=== PATIENT | female | born 1965 | race Caucasian/White ===

== ENCOUNTER → 2016-12-01 | Outpatient (CLI) | payer BC ==
--- NOTE | ~2016-12-01 | MR113 ---
[facility] A Service of [facility] & [facility] RADIOLOGY TEXT RESULTS PATIENT: SUDHA MELENDEZ LOCATION: [facility] : 67 UNIT #: [id number] AGE: [address]: Vasquez Henry II, MD SEX: F ORDER DR: [id number] [facility] [address] [place], [place] [address] [id number] O MR#: [id number] Acc #: [id number] NAME: SUDHA MELENDEZ : 1965 SEX: F STUDY DATE/TIME: 12/01/2016 14:43 UNIT: [facility] ROOM: STUDY DESCRIPTION: MR Lumbar Wo Contrast Attending Physician: Vasquez Henry II., M.D. Referring Physician: Vasquez Henry II., M.D. Ordering Physician: Vasquez Henry II., M.D. Primary Care Physician: Stuart Hartman M.D. MRI CENTER REPORT This report is preliminary unless electronic signature is present. EXAM Lumbar spine MRI without HISTORY Paresthesias. COMMENT MRI of lumbar spine performed without contrast using routine 1.5T imaging technique. Sagittal alignment is normal. Marrow signal intensity unremarkable allowing for minor marrow endplate degenerative change. Mild disc desiccation at L1-2 and L4-5. Conus medullaris terminates at L1 and is normal. At 1-2, there is mild bilateral facet hypertrophy. Mild concentric disc bulge superimposed right paramedian small protrusion. Mild flattening of the right anterior thecal sac but no significant central canal stenosis or foraminal impingement. At L2-3, mild facet degenerative change bilaterally with minor concentric disc bulge. There is no canal or foraminal impingement. At L3-4, there is mild bilateral facet degenerative change left greater than right. Mild ligamentum flavum thickening, mild concentric disc bulge. Mild effacement of the thecal sac. No central canal stenosis or significant foraminal impingement. L4-5, more moderate facet degenerative change bilaterally with moderate ligamentum flavum thickening. Mild broad-based posterior disc protrusion superimposed upon a minor bulge. Mild canal stenosis and mass effect on the left lateral recess in particular, minor mass effect on the right lateral recess. Please correlate for L5 radicular symptoms. Disc material also extends into the foramina and there is mild bilateral inferior foraminal narrowing. [facility]. [facility] A Service of [facility] & [facility] RADIOLOGY TEXT RESULTS PATIENT: SUDHA MELENDEZ LOCATION: [facility] : 67 UNIT #: [id number] AGE: [address]: Vasquez Henry II, MD SEX: F ORDER DR: L5-S1, mild facet degenerative change bilaterally. Mild broad-based posterior disc bulge. No canal stenosis. Tiny posterior annular fissure. No significant foraminal impingement. IMPRESSION 1. There is relatively mild lumbar degenerative change detailed above. Findings most significant appearing radiographically at the 4-5 level where there is mild canal stenosis and focal mass effect upon the left lateral recess expected location left L5 root. See above and correlate with symptoms. Dictated by... Ofe Savage M.D. THIS IS AN ELECTRONICALLY VERIFIED REPORT Ofe Savage M.D. at 12/02/2016 4:45 PM [place]/ethan TD: 12/02/2016 14:07 JOB #: [id number] MRI CENTER REPORT Page 1 of 1 COPY
== END | disposition home or self-care (01) ==
LOC: CMRI 13:15
DX: R20.2 Paresthesia of skin (principal); M48.06 Spinal stenosis, lumbar region; M47.896 Other spondylosis, lumbar region; M51.87 Other intervertebral disc disorders, lumbosacral region
CPT/HCPCS: 72148